=== PATIENT | female | born 1990 | race Caucasian/White ===

== ENCOUNTER → 2022-03-12 09:53 | Outpatient (CLI) | payer MEDICARE, MEDICAID, SELFPAY ==
[2022-03-12 11:52] LABS: HCG Quantitative /Beta subunit < 2.4 mIU/mL
[2022-03-12 12:31] LABS: Appearance Urine UA SL CLOUDY; Bilirubin Urine UA NEGATIVE (NEGATIVE); Color Urine UA YELLOW; Glucose Urine UA NEGATIVE (Negative); Ketones Urine UA NEGATIVE (NEGATIVE); Leukocyte Esterase Urine UA 2+ (NEGATIVE); Nitrite Urine UA NEGATIVE (Negative); Occult Blood Urine UA NEGATIVE (Negative); Protein Urine UA NEGATIVE (Negative); Urobilinogen Urine UA 0.2 E.U./dL (0.2)
[2022-03-12 12:54] LABS: Bacteria Urine Few (2-10); RBC Urine None Seen (0-5/HPF); Squamous Epithelial Cell Urine 0-1 /HPF (0-5/HPF); WBC Urine 1-5/HPF (0-5/HPF)
== END ==
PROVIDERS: PCP Family Medicine; Referring Provider Family Medicine; Visit Provider Family Medicine
DX: Z34.92 Encounter for supervision of normal pregnancy, unspecified, second trimester; Z3A.15 15 weeks gestation of pregnancy
CPT/HCPCS: 36415; 81001; 84702; 87086

== ENCOUNTER → 2023-04-19 12:24 | Outpatient (CLI) | payer MEDICARE, MEDICAID, SELFPAY ==
--- NOTE | 2023-04-19 12:28 | DI.RAD.S_ITS ---
PROCEDURE: XR LUMBAR SPINE 2-3V INDICATIONS: Back pain TECHNIQUE: 3 views of the lumbar spine were acquired. COMPARISON: None. FINDINGS: Bones: 5 [id number] vertebrae are present. There is transitional anatomy with lumbarization of S1 and a rudimentary disc at S1-S2. There is a mild rightward curvature of the thoracolumbar spine. Mild facet joint arthropathy demonstrated in the lower lumbar spine. No vertebral body compression fractures. No suspicious bony lesions. Soft tissues: Overlying bowel gas pattern is normal. No suspicious soft tissue calcifications. IMPRESSION: 1. 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 2. Mild facet arthropathy in the lower lumbar spine and at the lumbosacral junction. Dictated by: Eloy Estes M.D. on 04/20/2023 at 3:06 Approved by: Eloy Estes M.D. on 04/20/2023 at 3:09
== END ==
PROVIDERS: Referring Provider Physician Assistant; Visit Provider Physician Assistant
DX: M47.816 Spondylosis without myelopathy or radiculopathy, lumbar region (principal); M47.817 Spondylosis without myelopathy or radiculopathy, lumbosacral region; M54.9 Dorsalgia, unspecified
CPT/HCPCS: 72100

== ENCOUNTER 2023-07-12 11:30 | Outpatient (RCR) | payer MEDICARE, MEDICAID, SELFPAY ==
--- NOTE | 2023-06-01 09:57 | PT.OIE ---
Current Diagnoses Dorsalgia, unspecified (06/01/23) Past Medical History (Last Reviewed 04/19/23 @ 12:17 by Jeanna Bowens PA-C) Agenesis, corpus callosum Asthma Elbow fracture, left MRSA (methicillin resistant staph aureus) culture positive Past Surgical History (Last Reviewed 04/19/23 @ 12:17 by Jeanna Bowens PA-C) History of tonsillectomy Previous section Visit Care Team Role Provider Type Jeanna Bowens PA-C Attending Provider Advanced Distribution Transformer Assembler Family Provider Primary Care Provider Referring Provider Specialty: Emergency Medicine Address: [address] [place] [address], [facility] Email: [email or web address] Physical Therapy Initial Evaluation PT-OP-A Visit Information Start: 06/01/23 09:44 Freq: Status: Active Protocol: Document 06/01/23 09:45 ED (Rec: 06/01/23 09:57 ED [id number]) Out-Patient Physical Therapy Visit Information Visit Information Visit Type Initial Evaluation Visit Start Time 09:00 Visit Stop Time 09:45 Total Visit Minutes 45 PT-OP-B Current Condition Start: 06/01/23 09:44 Freq: Status: Active Protocol: Document 06/01/23 09:45 ED (Rec: 06/01/23 09:57 ED [id number]) Current Condition History of Current Condition Onset Date May Current Complaints LBP History of Current Condition Pt states that she fell out of a [employer]ul about 1 year ago and has had on and off back pain since then. Pt notes that she joined [employer] recently and hired a personal fitness manager but that production trainer wanted her to get her low back pain cleared up before they worked together. Pt notes that her pain is in her low back and the only things that she can think of that are painful for her are prolonged sitting and prolonged standing. Pt denies having any positional discomfort such as flexion or extension. Pt has no prior exercise history and states that she can get anxiety easily. PT-OP-C Subjective Start: 06/01/23 09:44 Freq: Status: Active Protocol: Document 06/01/23 09:45 ED (Rec: 06/01/23 09:57 ED [id number]) Patient Questionnaires Oswestry Low Back Index Oswestry Score 24 Oswestry Impairment 20 to 39% Impaired (Score 20- 39) PT-OP-K Range of Motion Start: 06/01/23 09:44 Freq: Status: Active Protocol: Document 06/01/23 09:45 ED (Rec: 06/01/23 09:57 ED [id number]) Lumbar Spine Range of Motion Lumbar Spine Percentage Testing Position Standing Flexion 75 Extension 50 ROM Limitations Pain PT-OP-L Special Tests Start: 06/01/23 09:44 Freq: Status: Active Protocol: Document 06/01/23 09:45 ED (Rec: 06/01/23 09:57 ED [id number]) Special Tests Lumbar Spine Special Tests Prone Press Up Test Results - Straight Leg Raise Test Results - PT-OP-Q Treatments Start: 06/01/23 09:44 Freq: Status: Active Protocol: Document 06/01/23 09:45 ED (Rec: 06/01/23 09:57 ED [id number]) Therapeutic Exercises Supine Exercises bridge Comments patient hesitant to perform bridge Prone Exercises rashard pose Reps/Minutes x30 second hold press up Reps/Minutes x10 OR 30 second hold Therapeutic Activity Therapeutic Activity squat Name STS PT-OP-T Assessment and Plan Start: 06/01/23 09:44 Freq: Status: Active Protocol: Document 06/01/23 09:45 ED (Rec: 06/01/23 09:57 ED [id number]) Physical Therapy Assessment Rehab Potential Rehabilitation Potential Fair Evaluation Complexity Number of Personal Factors/Comorbidities 1-2 Number of Body Systems Impaired 1-2 Clinical Presentation at Evaluation Stable Impairments Impairments Activity Tolerance,Functional Activities,Functional Mobility ,Pain,ROM Goals Three Impairment pain Short Term Goal (STG) Pt will report 15% improvement in low back pain intensity/ frequency. STG Duration 3 weeks. Wound Care Physician Goal (LTG) Pt will report 50% improvement in low back pain intensity/ frequency. LTG Duration 6-8 weeks Two Impairment painful movements Short Term Goal (STG) pt will be able to perform 10 bridges c/o low back pain. STG Duration 3 weeks Wound Care Physician Goal (LTG) Pt will be able to drupal php developer 10# object from the ground c/o low back pain. One Impairment HEP Short Term Goal (STG) Pt will report performing HEP 3 days/week or more. STG Duration 3 weeks Fpc Goal (LTG) Pt will report performing HEP 3 days/week or more. LTG Duration 6 weeks Assessment Summary Assessment Pt reported to PT c/ complaints of chronic low back pain that started about 1 year ago when she fell out of a truck. Pain seemed to be reproduced c/ muscular exertion such as hip bridges and bending over. Pt did not have a directional preference. She has no exercise history and stated that she can have severe anxiety so PT will progress/regress patient accordingly to match her tolerance for activity and strenuous exercises. Pt provided initial HEP of: hip bridges, rashard pose, prone press ups, sit<>stands, and aerobic activity on a TM or elliptical. Physical Therapy Plan Frequency and Duration Frequency of Treatment 2x/Week Duration of treatment (weeks) 10 Plan of Care Start Date 06/01/23 Plan of Care End Date 08/30/23 Therapeutic Interventions Therapeutic Interventions Home Exercise Program,Joint Mobilizations,Manual Therapy, Neuromuscular Re-education, Patient/Caregiver Education, Self-Care/Home Management,Soft Tissue Mobilization,Taping, Therapeutic Activities, Therapeutic Exercises Modalities Biofeedback,Cold Pack/Ice Massage,Electric Stimulation, Hot Packs,Ultrasound Next Visit Focus/Plan Next Note Type Treatment Note Next Visit Plan hip bridges, rashard pose, prone press ups, sit<>stands, and aerobic activity on a TM or elliptical.
--- NOTE | 2023-06-01 09:57 | PT.OPPOC ---
Physical, Occupational & Speech Therapy At [facility] Current Diagnoses Dorsalgia, unspecified (06/01/23) Visit Care Team Role Provider Type Jeanna Bowens PA-C Attending Provider Advanced Tar Heat Exchanger Cleaner Family Provider Primary Care Provider Referring Provider Specialty: Emergency Medicine Address: [address] [place] [address], [facility] Email: [email or web address] Plan Of Care PT-OP-T Assessment and Plan Start: 06/01/23 09:44 Freq: Status: Active Protocol: Document 06/01/23 09:45 ED (Rec: 06/01/23 09:57 ED [id number]) Physical Therapy Assessment Rehab Potential Rehabilitation Potential Fair Evaluation Complexity Number of Personal Factors/Comorbidities 1-2 Number of Body Systems Impaired 1-2 Clinical Presentation at Evaluation Stable Impairments Impairments Activity Tolerance,Functional Activities,Functional Mobility ,Pain,ROM Goals Three Impairment pain Short Term Goal (STG) Pt will report 15% improvement in low back pain intensity/ frequency. STG Duration 3 weeks. Shelter Goal (LTG) Pt will report 50% improvement in low back pain intensity/ frequency. LTG Duration 6-8 weeks Two Impairment painful movements Short Term Goal (STG) pt will be able to perform 10 bridges c/o low back pain. STG Duration 3 weeks Orchard Manager Goal (LTG) Pt will be able to pick out hand 10# object from the ground c/o low back pain. One Impairment HEP Short Term Goal (STG) Pt will report performing HEP 3 days/week or more. STG Duration 3 weeks Orchard Manager Goal (LTG) Pt will report performing HEP 3 days/week or more. LTG Duration 6 weeks Assessment Summary Assessment Pt reported to PT c/ complaints of chronic low back pain that started about 1 year ago when she fell out of a truck. Pain seemed to be reproduced c/ muscular exertion such as hip bridges and bending over. Pt did not have a directional preference. She has no exercise history and stated that she can have severe anxiety so PT will progress/regress patient accordingly to match her tolerance for activity and strenuous exercises. Pt provided initial HEP of: hip bridges, rashard pose, prone press ups, sit<>stands, and aerobic activity on a TM or elliptical. Physical Therapy Plan Frequency and Duration Frequency of Treatment 2x/Week Duration of treatment (weeks) 10 Plan of Care Start Date 06/01/23 Plan of Care End Date 08/30/23 Therapeutic Interventions Therapeutic Interventions Home Exercise Program,Joint Mobilizations,Manual Therapy, Neuromuscular Re-education, Patient/Caregiver Education, Self-Care/Home Management,Soft Tissue Mobilization,Taping, Therapeutic Activities, Therapeutic Exercises Modalities Biofeedback,Cold Pack/Ice Massage,Electric Stimulation, Hot Packs,Ultrasound Next Visit Focus/Plan Next Note Type Treatment Note Next Visit Plan hip bridges, rashard pose, prone press ups, sit<>stands, and aerobic activity on a TM or elliptical. Plan of Care Dates Plan of Care Start Date 06/01/23 Plan of Care End Date 08/30/23 Electronically Signed by: Delbert Poe, PT 06/01/23 0957 If you are in agreement with this Plan of Care, please return a signed and dated copy. I have reviewed this Plan of Care and certify that the skilled therapy services above are required to meet the patient?s needs. Physician Signature Date Printed Name and Credentials Clinical Instructor Signature Printed Name and Credentials
--- NOTE | 2023-06-07 09:03 | PT.OTN ---
Current Diagnoses Dorsalgia, unspecified (06/07/23) Physical Therapy Treatment Note PT-OP-A Visit Information Start: 06/01/23 09:44 Freq: Status: Active Protocol: Document 06/07/23 09:00 ED (Rec: 06/07/23 09:03 ED [id number]) Out-Patient Physical Therapy Visit Information Visit Information Visit Type Treatment Note Visit Note 11/26 Visit Start Time 08:15 Visit Stop Time 09:00 Total Visit Minutes 45 Visit Number 2 PT-OP-B Current Condition Start: 06/01/23 09:44 Freq: Status: Active Protocol: Document 06/01/23 09:45 ED (Rec: 06/01/23 09:57 ED [id number]) Current Condition History of Current Condition Onset Date May Current Complaints LBP History of Current Condition Pt states that she fell out of a [employer] about 1 year ago and has had on and off back pain since then. Pt notes that she joined [employer] recently and hired a celebrity chef entrepreneur media personality but that puppy trainer wanted her to get her low back pain cleared up before they worked together. Pt notes that her pain is in her low back and the only things that she can think of that are painful for her are prolonged sitting and prolonged standing. Pt denies having any positional discomfort such as flexion or extension. Pt has no prior exercise history and states that she can get anxiety easily. PT-OP-C Subjective Start: 06/01/23 09:44 Freq: Status: Active Protocol: Document 06/07/23 09:00 ED (Rec: 06/07/23 09:03 ED [id number]) OP-PT Subjective Patient Comments Patient Comments Pt states she did not perform her HEP. States she had a bad migraine over the weekend. PT-OP-K Range of Motion Start: 06/01/23 09:44 Freq: Status: Active Protocol: Document 06/01/23 09:45 ED (Rec: 06/01/23 09:57 ED [id number]) Lumbar Spine Range of Motion Lumbar Spine Percentage Testing Position Standing Flexion 75 Extension 50 ROM Limitations Pain PT-OP-L Special Tests Start: 06/01/23 09:44 Freq: Status: Active Protocol: Document 06/01/23 09:45 ED (Rec: 06/01/23 09:57 ED [id number]) Special Tests Lumbar Spine Special Tests Prone Press Up Test Results - Straight Leg Raise Test Results - PT-OP-Q Treatments Start: 06/01/23 09:44 Freq: Status: Active Protocol: Document 06/07/23 09:00 ED (Rec: 06/07/23 09:03 ED [id number]) Cardio Equipment Elliptical Duration (Minutes) 10 Resistance 4 Other goal to keep RPM >40 Treadmill Duration (Minutes) 10 Speed 2.0 Incline 4.0 Therapeutic Exercises Supine Exercises bridge Resistance 10# Comments patient hesitant to perform bridge Prone Exercises rashard pose Reps/Minutes x30 second hold press up Reps/Minutes x10 OR 30 second hold Therapeutic Activity Therapeutic Activity squat Name STS Reps/Minutes 4x15 Comments 10# PT-OP-T Assessment and Plan Start: 06/01/23 09:44 Freq: Status: Active Protocol: Document 06/07/23 09:00 ED (Rec: 06/07/23 09:03 ED [id number]) Physical Therapy Assessment Goals Three Impairment pain Short Term Goal (STG) Pt will report 15% improvement in low back pain intensity/ frequency. STG Duration 3 weeks. Mcc Goal (LTG) Pt will report 50% improvement in low back pain intensity/ frequency. LTG Duration 6-8 weeks Two Impairment painful movements Short Term Goal (STG) pt will be able to perform 10 bridges c/o low back pain. STG Duration 3 weeks Telegraph Service Clerk Goal (LTG) Pt will be able to clam picker 10# object from the ground c/o low back pain. One Impairment HEP Short Term Goal (STG) Pt will report performing HEP 3 days/week or more. STG Duration 3 weeks Mcc Goal (LTG) Pt will report performing HEP 3 days/week or more. LTG Duration 6 weeks Assessment Summary Assessment Pt tolerated treatment well c/ no adverse events. Pt has very limited exposure to structured exercise so PT is slowly building up exercise selections and intensities. Pt worked on LE strengthening and core bracing today. Started and ended session c/ cardio equipment so patient can familiarize herself with equipment and become independent when she goes to the gym. Physical Therapy Plan Frequency and Duration Frequency of Treatment 2x/Week Duration of treatment (weeks) 10 Plan of Care Start Date 06/01/23 Plan of Care End Date 08/30/23 Next Visit Focus/Plan Next Note Type Treatment Note Next Visit Plan hip bridges, rashard pose, prone press ups, sit<>stands, and aerobic activity on a TM or elliptical.
--- NOTE | 2023-06-14 08:59 | PT.OTN ---
Current Diagnoses Dorsalgia, unspecified (06/14/23) Physical Therapy Treatment Note PT-OP-A Visit Information Start: 06/01/23 09:44 Freq: Status: Active Protocol: Document 06/14/23 08:57 ED (Rec: 06/14/23 08:59 ED [id number]) Out-Patient Physical Therapy Visit Information Visit Information Visit Type Treatment Note Visit Note 12/24 Visit Start Time 08:15 Visit Stop Time 08:55 Total Visit Minutes 40 Visit Number 3 PT-OP-B Current Condition Start: 06/01/23 09:44 Freq: Status: Active Protocol: Document 06/01/23 09:45 ED (Rec: 06/01/23 09:57 ED [id number]) Current Condition History of Current Condition Onset Date May Current Complaints LBP History of Current Condition Pt states that she fell out of a [employer] about 1 year ago and has had on and off back pain since then. Pt notes that she joined [employer] recently and hired a senior technical trainer but that medical management trainer wanted her to get her low back pain cleared up before they worked together. Pt notes that her pain is in her low back and the only things that she can think of that are painful for her are prolonged sitting and prolonged standing. Pt denies having any positional discomfort such as flexion or extension. Pt has no prior exercise history and states that she can get anxiety easily. PT-OP-C Subjective Start: 06/01/23 09:44 Freq: Status: Active Protocol: Document 06/14/23 08:57 ED (Rec: 06/14/23 08:59 ED [id number]) OP-PT Subjective Patient Comments Patient Comments Pt apologizes for missing last session. She notes her driver lifter of sanitation truck was unable to get her to the appointment on time. States she was a little sore following last session. PT-OP-K Range of Motion Start: 06/01/23 09:44 Freq: Status: Active Protocol: Document 06/01/23 09:45 ED (Rec: 06/01/23 09:57 ED [id number]) Lumbar Spine Range of Motion Lumbar Spine Percentage Testing Position Standing Flexion 75 Extension 50 ROM Limitations Pain PT-OP-L Special Tests Start: 06/01/23 09:44 Freq: Status: Active Protocol: Document 06/01/23 09:45 ED (Rec: 08/16/23 09:57 ED [id number]) Special Tests Lumbar Spine Special Tests Prone Press Up Test Results - Straight Leg Raise Test Results - PT-OP-Q Treatments Start: 06/01/23 09:44 Freq: Status: Active Protocol: Document 06/14/23 08:57 ED (Rec: 06/14/23 08:59 ED [id number]) Cardio Equipment Elliptical Duration (Minutes) 10 Resistance 4 Other goal to keep RPM >40 Treadmill Duration (Minutes) 10 Speed 2.0 Incline 4.0 Therapeutic Exercises Supine Exercises bridge Resistance 10# Prone Exercises rashard pose Reps/Minutes x30 second hold press up Reps/Minutes x10 OR 30 second hold Therapeutic Activity Therapeutic Activity squat Name STS Reps/Minutes 4x15 Comments 10# PT-OP-T Assessment and Plan Start: 06/01/23 09:44 Freq: Status: Active Protocol: Document 06/14/23 08:57 ED (Rec: 06/14/23 08:59 ED [id number]) Physical Therapy Assessment Goals Three Impairment pain Short Term Goal (STG) Pt will report 15% improvement in low back pain intensity/ frequency. STG Duration 3 weeks. Denture Finisher Goal (LTG) Pt will report 50% improvement in low back pain intensity/ frequency. LTG Duration 6-8 weeks Two Impairment painful movements Short Term Goal (STG) pt will be able to perform 10 bridges c/o low back pain. STG Duration 3 weeks Denture Finisher Goal (LTG) Pt will be able to parts picker 10# object from the ground c/o low back pain. One Impairment HEP Short Term Goal (STG) Pt will report performing HEP 3 days/week or more. STG Duration 3 weeks Penitentiary Goal (LTG) Pt will report performing HEP 3 days/week or more. LTG Duration 6 weeks Assessment Summary Assessment PT had patient perform exercises similar to last session to mitigate muscle soreness. No pain noted during exercises today. Physical Therapy Plan Frequency and Duration Frequency of Treatment 2x/Week Duration of treatment (weeks) 10 Plan of Care Start Date 06/01/23 Plan of Care End Date 08/30/23 Next Visit Focus/Plan Next Note Type Treatment Note Next Visit Plan hip bridges, rashard pose, prone press ups, sit<>stands, and aerobic activity on a TM or elliptical.
--- NOTE | 2023-06-17 09:01 | PT.OTN ---
Current Diagnoses Dorsalgia, unspecified (06/17/23) Physical Therapy Treatment Note PT-OP-A Visit Information Start: 06/01/23 09:44 Freq: Status: Active Protocol: Document 06/17/23 08:58 ED (Rec: 06/17/23 09:01 ED [id number]) Out-Patient Physical Therapy Visit Information Visit Information Visit Type Treatment Note Visit Note 01/24 Visit Start Time 08:25 Visit Stop Time 08:55 Total Visit Minutes 30 Visit Number 4 PT-OP-B Current Condition Start: 06/01/23 09:44 Freq: Status: Active Protocol: Document 06/01/23 09:45 ED (Rec: 06/01/23 09:57 ED [id number]) Current Condition History of Current Condition Onset Date May Current Complaints LBP History of Current Condition Pt states that she fell out of a [employer]Ha[employer] about 1 year ago and has had on and off back pain since then. Pt notes that she joined [employer] recently and hired a program director/air personality but that seeing eye dog trainer wanted her to get her low back pain cleared up before they worked together. Pt notes that her pain is in her low back and the only things that she can think of that are painful for her are prolonged sitting and prolonged standing. Pt denies having any positional discomfort such as flexion or extension. Pt has no prior exercise history and states that she can get anxiety easily. PT-OP-C Subjective Start: 06/01/23 09:44 Freq: Status: Active Protocol: Document 06/17/23 08:58 ED (Rec: 06/17/23 09:01 ED [id number]) OP-PT Subjective Patient Comments Patient Comments Pt states she has some low back pain yesterday. It can sometimes spread to her R hip but not always. PT-OP-K Range of Motion Start: 06/01/23 09:44 Freq: Status: Active Protocol: Document 06/01/23 09:45 ED (Rec: 06/01/23 09:57 ED [id number]) Lumbar Spine Range of Motion Lumbar Spine Percentage Testing Position Standing Flexion 75 Extension 50 ROM Limitations Pain PT-OP-L Special Tests Start: 06/01/23 09:44 Freq: Status: Active Protocol: Document 06/01/23 09:45 ED (Rec: 06/01/23 09:57 ED [id number]) Special Tests Lumbar Spine Special Tests Prone Press Up Test Results - Straight Leg Raise Test Results - PT-OP-Q Treatments Start: 06/01/23 09:44 Freq: Status: Active Protocol: Document 06/17/23 08:58 ED (Rec: 06/17/23 09:01 ED [id number]) Cardio Equipment Treadmill Duration (Minutes) 10 Speed 2.0 Incline 4.0 Therapeutic Exercises Supine Exercises bridge Resistance 10# Reps/Minutes 3x10 Prone Exercises rashard pose Reps/Minutes x30 second hold press up Reps/Minutes x10 OR 30 second hold Standing Exercises lateral throw Standing Exercise Name lateral med ball throw Side bilateral Resistance 5# Equipment Used ball Reps/Minutes 2x10/side Therapeutic Activity Therapeutic Activity hinge Name RDL Reps/Minutes [id number] Comments 10-20# PT-OP-T Assessment and Plan Start: 06/01/23 09:44 Freq: Status: Active Protocol: Document 06/17/23 08:58 ED (Rec: 06/17/23 09:01 ED [id number]) Physical Therapy Assessment Goals Three Impairment pain Short Term Goal (STG) Pt will report 15% improvement in low back pain intensity/ frequency. STG Duration 3 weeks. Latent Fingerprint Examiner Goal (LTG) Pt will report 50% improvement in low back pain intensity/ frequency. LTG Duration 6-8 weeks Two Impairment painful movements Short Term Goal (STG) pt will be able to perform 10 bridges c/o low back pain. STG Duration 3 weeks Halfway Goal (LTG) Pt will be able to pickle processor 10# object from the ground c/o low back pain. One Impairment HEP Short Term Goal (STG) Pt will report performing HEP 3 days/week or more. STG Duration 3 weeks Halfway Goal (LTG) Pt will report performing HEP 3 days/week or more. LTG Duration 6 weeks Assessment Summary Assessment PT and patient spoke regarding going to [employer] and working with her program director/air personality. Pt states that she has never had back pain before and wants it to go away. PT discussed that pain, especially low back pain, is often not a serious injury and has the tendency to come and go. Pt somewhat responsive to input but still hesisitant to return to gym. Physical Therapy Plan Frequency and Duration Frequency of Treatment 2x/Week Duration of treatment (weeks) 10 Plan of Care Start Date 06/01/23 Plan of Care End Date 08/30/23 Next Visit Focus/Plan Next Note Type Treatment Note Next Visit Plan hip bridges, rashard pose, prone press ups, sit<>stands, and aerobic activity on a TM or elliptical.
--- NOTE | 2023-06-23 12:02 | PT.OTN ---
Current Diagnoses Dorsalgia, unspecified (06/23/23) Physical Therapy Treatment Note PT-OP-A Visit Information Start: 06/01/23 09:44 Freq: Status: Active Protocol: Document 06/23/23 11:58 ED (Rec: 06/23/23 12:02 ED [id number]) Out-Patient Physical Therapy Visit Information Visit Information Visit Type Treatment Note Visit Note 02/23 Visit Start Time 11:30 Visit Stop Time 12:00 Total Visit Minutes 30 Visit Number 5 PT-OP-B Current Condition Start: 06/01/23 09:44 Freq: Status: Active Protocol: Document 06/01/23 09:45 ED (Rec: 06/01/23 09:57 ED [id number]) Current Condition History of Current Condition Onset Date May Current Complaints LBP History of Current Condition Pt states that she fell out of a [employer] about 1 year ago and has had on and off back pain since then. Pt notes that she joined [employer] recently and hired a personal caregiver but that corporate sales trainer wanted her to get her low back pain cleared up before they worked together. Pt notes that her pain is in her low back and the only things that she can think of that are painful for her are prolonged sitting and prolonged standing. Pt denies having any positional discomfort such as flexion or extension. Pt has no prior exercise history and states that she can get anxiety easily. PT-OP-C Subjective Start: 06/01/23 09:44 Freq: Status: Active Protocol: Document 06/23/23 11:58 ED (Rec: 06/23/23 12:02 ED [id number]) OP-PT Subjective Patient Comments Patient Comments Pt denies having any increase in back pain following last PT session. States that she is hopeful to get started c/ a dietitian soon and start going to the gym. PT-OP-K Range of Motion Start: 06/01/23 09:44 Freq: Status: Active Protocol: Document 06/01/23 09:45 ED (Rec: 06/01/23 09:57 ED [id number]) Lumbar Spine Range of Motion Lumbar Spine Percentage Testing Position Standing Flexion 75 Extension 50 ROM Limitations Pain PT-OP-L Special Tests Start: 06/01/23 09:44 Freq: Status: Active Protocol: Document 06/01/23 09:45 ED (Rec: 06/01/23 09:57 ED [id number]) Special Tests Lumbar Spine Special Tests Prone Press Up Test Results - Straight Leg Raise Test Results - PT-OP-Q Treatments Start: 06/01/23 09:44 Freq: Status: Active Protocol: Document 06/23/23 11:58 ED (Rec: 06/23/23 12:02 ED [id number]) Cardio Equipment Treadmill Duration (Minutes) 10 Speed 2.0 Incline 4.0 Therapeutic Exercises Supine Exercises bridge Resistance 10# Reps/Minutes 3x10 Comments normal bridge, single leg bridge, weighted bridge Prone Exercises rashard pose Reps/Minutes x30 second hold press up Reps/Minutes x10 OR 30 second hold Therapeutic Activity Therapeutic Activity hinge Name RDL Reps/Minutes [id number] Comments 20# squat Name STS Reps/Minutes 3x10 Comments 10# PT-OP-T Assessment and Plan Start: 06/01/23 09:44 Freq: Status: Active Protocol: Document 06/23/23 11:58 ED (Rec: 06/23/23 12:02 ED [id number]) Physical Therapy Assessment Goals Three Impairment pain Short Term Goal (STG) Pt will report 15% improvement in low back pain intensity/ frequency. STG Duration 3 weeks. Correction Goal (LTG) Pt will report 50% improvement in low back pain intensity/ frequency. LTG Duration 6-8 weeks Two Impairment painful movements Short Term Goal (STG) pt will be able to perform 10 bridges c/o low back pain. STG Duration 3 weeks Correction Goal (LTG) Pt will be able to pickup driver 10# object from the ground c/o low back pain. One Impairment HEP Short Term Goal (STG) Pt will report performing HEP 3 days/week or more. STG Duration 3 weeks Correction Goal (LTG) Pt will report performing HEP 3 days/week or more. LTG Duration 6 weeks Assessment Summary Assessment Pt tolerating treatment and current exercise selection well which has included lumbopelvic mobility drills and compound movements that focus on LE strength and core bracing. Physical Therapy Plan Frequency and Duration Frequency of Treatment 2x/Week Duration of treatment (weeks) 10 Plan of Care Start Date 06/01/23 Plan of Care End Date 08/30/23 Next Visit Focus/Plan Next Note Type Treatment Note Next Visit Plan hip bridges, rashard pose, prone press ups, sit<>stands, core rotation throws and aerobic activity on a TM or elliptical.
--- NOTE | 2023-06-28 12:16 | PT.OTN ---
Current Diagnoses Dorsalgia, unspecified (06/28/23) Physical Therapy Treatment Note PT-OP-A Visit Information Start: 06/01/23 09:44 Freq: Status: Active Protocol: Document 06/28/23 12:12 ED (Rec: 06/28/23 12:16 ED [id number]) Out-Patient Physical Therapy Visit Information Visit Information Visit Type Treatment Note Visit Note 03/26 Visit Start Time 11:30 Visit Stop Time 12:10 Total Visit Minutes 40 Visit Number 6 PT-OP-B Current Condition Start: 06/01/23 09:44 Freq: Status: Active Protocol: Document 06/01/23 09:45 ED (Rec: 06/01/23 09:57 ED [id number]) Current Condition History of Current Condition Onset Date May Current Complaints LBP History of Current Condition Pt states that she fell out of a [employer] about 1 year ago and has had on and off back pain since then. Pt notes that she joined [employer] recently and hired a personal injury legal assistant but that net trainer wanted her to get her low back pain cleared up before they worked together. Pt notes that her pain is in her low back and the only things that she can think of that are painful for her are prolonged sitting and prolonged standing. Pt denies having any positional discomfort such as flexion or extension. Pt has no prior exercise history and states that she can get anxiety easily. PT-OP-C Subjective Start: 06/01/23 09:44 Freq: Status: Active Protocol: Document 06/28/23 12:12 ED (Rec: 06/28/23 12:16 ED [id number]) OP-PT Subjective Patient Comments Patient Comments Pt states that she is going to start going to the gym in early July and is hopeful to have a fabrication welder at that point in time as well. States her back is better and typically just hurts if she has been standing too long or in certain positions. PT-OP-K Range of Motion Start: 06/01/23 09:44 Freq: Status: Active Protocol: Document 06/01/23 09:45 ED (Rec: 06/01/23 09:57 ED [id number]) Lumbar Spine Range of Motion Lumbar Spine Percentage Testing Position Standing Flexion 75 Extension 50 ROM Limitations Pain PT-OP-L Special Tests Start: 06/01/23 09:44 Freq: Status: Active Protocol: Document 06/01/23 09:45 ED (Rec: 06/01/23 09:57 ED [id number]) Special Tests Lumbar Spine Special Tests Prone Press Up Test Results - Straight Leg Raise Test Results - PT-OP-Q Treatments Start: 06/01/23 09:44 Freq: Status: Active Protocol: Document 06/28/23 12:12 ED (Rec: 06/28/23 12:16 ED [id number]) Cardio Equipment Treadmill Duration (Minutes) 10 Speed 2.0 Incline 4.0 Therapeutic Exercises Supine Exercises bridge Resistance 10# Reps/Minutes 3x10 Comments normal bridge, single leg bridge, weighted bridge Prone Exercises rashard pose Reps/Minutes x30 second hold press up Reps/Minutes x10 OR 30 second hold Standing Exercises lateral throw Standing Exercise Name lateral med ball throw Side bilateral Resistance 5# Equipment Used ball Reps/Minutes 2x10/side Therapeutic Activity Therapeutic Activity hinge Name RDL Reps/Minutes [id number] Comments 20# PT-OP-T Assessment and Plan Start: 06/01/23 09:44 Freq: Status: Active Protocol: Document 06/28/23 12:12 ED (Rec: 06/28/23 12:16 ED [id number]) Physical Therapy Assessment Goals Three Impairment pain Short Term Goal (STG) Pt will report 15% improvement in low back pain intensity/ frequency. STG Duration 3 weeks. Ed Tech Goal (LTG) Pt will report 50% improvement in low back pain intensity/ frequency. LTG Duration 6-8 weeks Two Impairment painful movements Short Term Goal (STG) pt will be able to perform 10 bridges c/o low back pain. STG Duration 3 weeks Ed Tech Goal (LTG) Pt will be able to cone picker 10# object from the ground c/o low back pain. One Impairment HEP Short Term Goal (STG) Pt will report performing HEP 3 days/week or more. STG Duration 3 weeks Ed Tech Goal (LTG) Pt will report performing HEP 3 days/week or more. LTG Duration 6 weeks Assessment Summary Assessment Pt happy b/c she was able to crack her back when performing lumbar mobility drills today. PT asked patient how therapy has been going for her and she stated that she hasn't noticed any discomfort when performing the exercises nor has she been very sore after exercising. PT attempting to educated patient that low back pain is a normal experience and that she should be able to work with her personal injury legal assistant at the gym. Physical Therapy Plan Frequency and Duration Frequency of Treatment 2x/Week Duration of treatment (weeks) 10 Plan of Care Start Date 06/01/23 Plan of Care End Date 08/30/23 Next Visit Focus/Plan Next Note Type Treatment Note Next Visit Plan hip bridges, rashard pose, prone press ups, sit<>stands, core rotation throws and aerobic activity on a TM or elliptical.
--- NOTE | 2023-07-01 12:16 | PT.OTN ---
Current Diagnoses Dorsalgia, unspecified (07/01/23) Physical Therapy Treatment Note PT-OP-A Visit Information Start: 06/01/23 09:44 Freq: Status: Active Protocol: Document 07/01/23 12:14 ED (Rec: 07/01/23 12:16 ED [id number]) Out-Patient Physical Therapy Visit Information Visit Information Visit Type Treatment Note Visit Note 04/25 Visit Start Time 11:30 Visit Stop Time 12:15 Total Visit Minutes 45 Visit Number 7 PT-OP-B Current Condition Start: 06/01/23 09:44 Freq: Status: Active Protocol: Document 06/01/23 09:45 ED (Rec: 06/01/23 09:57 ED [id number]) Current Condition History of Current Condition Onset Date May Current Complaints LBP History of Current Condition Pt states that she fell out of a [employer] about 1 year ago and has had on and off back pain since then. Pt notes that she joined [employer] recently and hired a representative personal service but that head athletic trainer/strength coach wanted her to get her low back pain cleared up before they worked together. Pt notes that her pain is in her low back and the only things that she can think of that are painful for her are prolonged sitting and prolonged standing. Pt denies having any positional discomfort such as flexion or extension. Pt has no prior exercise history and states that she can get anxiety easily. PT-OP-C Subjective Start: 06/01/23 09:44 Freq: Status: Active Protocol: Document 07/01/23 12:14 ED (Rec: 07/01/23 12:16 ED [id number]) OP-PT Subjective Patient Comments Patient Comments Pt states that her back is feeling better. She feels like she is able to move it more freely and with less pain. PT-OP-K Range of Motion Start: 06/01/23 09:44 Freq: Status: Active Protocol: Document 06/01/23 09:45 ED (Rec: 06/01/23 09:57 ED [id number]) Lumbar Spine Range of Motion Lumbar Spine Percentage Testing Position Standing Flexion 75 Extension 50 ROM Limitations Pain PT-OP-L Special Tests Start: 06/01/23 09:44 Freq: Status: Active Protocol: Document 06/01/23 09:45 ED (Rec: 06/01/23 09:57 ED [id number]) Special Tests Lumbar Spine Special Tests Prone Press Up Test Results - Straight Leg Raise Test Results - PT-OP-Q Treatments Start: 06/01/23 09:44 Freq: Status: Active Protocol: Document 07/01/23 12:14 ED (Rec: 07/01/23 12:16 ED [id number]) Cardio Equipment Elliptical Duration (Minutes) 10 Resistance 4 Other goal to keep RPM >40 Treadmill Duration (Minutes) 10 Speed 2.0 Incline 4.0 Therapeutic Exercises Prone Exercises scoprion Reps/Minutes x5 each way rashard pose Reps/Minutes x30 second hold press up Reps/Minutes x10 OR 30 second hold Standing Exercises lateral throw Standing Exercise Name lateral med ball throw Side bilateral Resistance 5# Equipment Used ball Reps/Minutes 2x10/side Therapeutic Activity Therapeutic Activity hinge Name RDL Reps/Minutes [id number] Comments 20# squat Name STS Reps/Minutes 3x10 Comments 10# PT-OP-T Assessment and Plan Start: 06/01/23 09:44 Freq: Status: Active Protocol: Document 07/01/23 12:14 ED (Rec: 07/01/23 12:16 ED [id number]) Physical Therapy Assessment Goals Three Impairment pain Short Term Goal (STG) Pt will report 15% improvement in low back pain intensity/ frequency. STG Duration 3 weeks. Senior Living Goal (LTG) Pt will report 50% improvement in low back pain intensity/ frequency. LTG Duration 6-8 weeks Two Impairment painful movements Short Term Goal (STG) pt will be able to perform 10 bridges c/o low back pain. STG Duration 3 weeks Senior Living Goal (LTG) Pt will be able to last picker 10# object from the ground c/o low back pain. One Impairment HEP Short Term Goal (STG) Pt will report performing HEP 3 days/week or more. STG Duration 3 weeks Senior Living Goal (LTG) Pt will report performing HEP 3 days/week or more. LTG Duration 6 weeks Assessment Summary Assessment Pt happy b/c she was able to crack her back when performing lumbar mobility drills today. PT asked patient how therapy has been going for her and she stated that she hasn't noticed any discomfort when performing the exercises nor has she been very sore after exercising. PT attempting to educated patient that low back pain is a normal experience and that she should be able to work with her representative personal service at the gym. Physical Therapy Plan Next Visit Focus/Plan Next Note Type Treatment Note Next Visit Plan hip bridges, rashard pose, prone press ups, sit<>stands, core rotation throws and aerobic activity on a TM or elliptical.
--- NOTE | 2023-07-05 10:45 | PT.OTN ---
Current Diagnoses Dorsalgia, unspecified (07/05/23) Physical Therapy Treatment Note PT-OP-A Visit Information Start: 06/01/23 09:44 Freq: Status: Active Protocol: Document 07/05/23 10:43 ED (Rec: 07/05/23 10:45 ED [id number]) Out-Patient Physical Therapy Visit Information Visit Information Visit Type Treatment Note Visit Note 05/26 Visit Start Time 10:00 Visit Stop Time 10:40 Total Visit Minutes 40 Visit Number 8 PT-OP-B Current Condition Start: 06/01/23 09:44 Freq: Status: Active Protocol: Document 06/01/23 09:45 ED (Rec: 06/01/23 09:57 ED [id number]) Current Condition History of Current Condition Onset Date May Current Complaints LBP History of Current Condition Pt states that she fell out of a [employer] about 1 year ago and has had on and off back pain since then. Pt notes that she joined [employer] recently and hired a personal financial planner but that senior technical trainer wanted her to get her low back pain cleared up before they worked together. Pt notes that her pain is in her low back and the only things that she can think of that are painful for her are prolonged sitting and prolonged standing. Pt denies having any positional discomfort such as flexion or extension. Pt has no prior exercise history and states that she can get anxiety easily. PT-OP-C Subjective Start: 06/01/23 09:44 Freq: Status: Active Protocol: Document 07/05/23 10:43 ED (Rec: 07/05/23 10:45 ED [id number]) OP-PT Subjective Patient Comments Patient Comments Pt states that her back is not bothering her today. It is overall feeling better. PT-OP-K Range of Motion Start: 06/01/23 09:44 Freq: Status: Active Protocol: Document 06/01/23 09:45 ED (Rec: 06/01/23 09:57 ED [id number]) Lumbar Spine Range of Motion Lumbar Spine Percentage Testing Position Standing Flexion 75 Extension 50 ROM Limitations Pain PT-OP-L Special Tests Start: 06/01/23 09:44 Freq: Status: Active Protocol: Document 06/01/23 09:45 ED (Rec: 06/01/23 09:57 ED [id number]) Special Tests Lumbar Spine Special Tests Prone Press Up Test Results - Straight Leg Raise Test Results - PT-OP-Q Treatments Start: 06/01/23 09:44 Freq: Status: Active Protocol: Document 07/05/23 10:43 ED (Rec: 07/05/23 10:45 ED [id number]) Cardio Equipment Elliptical Duration (Minutes) 10 Resistance 4 Other goal to keep RPM >40 Treadmill Duration (Minutes) 10 Speed 2.0 Incline 4.0 Therapeutic Exercises Supine Exercises bridge Resistance 10# Reps/Minutes 3x10 Comments normal bridge, single leg bridge, weighted bridge Prone Exercises rashard pose Reps/Minutes x30 second hold press up Reps/Minutes x10 OR 30 second hold Therapeutic Activity Therapeutic Activity row Name cable row Reps/Minutes 3x15 Comments L3 squat Name STS Reps/Minutes 3x10 Comments 10# PT-OP-T Assessment and Plan Start: 06/01/23 09:44 Freq: Status: Active Protocol: Document 07/05/23 10:43 ED (Rec: 07/05/23 10:45 ED [id number]) Physical Therapy Assessment Goals Three Impairment pain Short Term Goal (STG) Pt will report 15% improvement in low back pain intensity/ frequency. STG Duration 3 weeks. Etl Informatica Architect Goal (LTG) Pt will report 50% improvement in low back pain intensity/ frequency. LTG Duration 6-8 weeks Two Impairment painful movements Short Term Goal (STG) pt will be able to perform 10 bridges c/o low back pain. STG Duration 3 weeks Snf Goal (LTG) Pt will be able to milk pickup truck driver 10# object from the ground c/o low back pain. One Impairment HEP Short Term Goal (STG) Pt will report performing HEP 3 days/week or more. STG Duration 3 weeks Snf Goal (LTG) Pt will report performing HEP 3 days/week or more. LTG Duration 6 weeks Assessment Summary Assessment Pt happy b/c she was able to crack her back when performing lumbar mobility drills today. PT asked patient how therapy has been going for her and she stated that she hasn't noticed any discomfort when performing the exercises nor has she been very sore after exercising. PT attempting to educated patient that low back pain is a normal experience and that she should be able to work with her personal financial planner at the gym. Physical Therapy Plan Frequency and Duration Frequency of Treatment 2x/Week Duration of treatment (weeks) 10 Plan of Care Start Date 06/01/23 Plan of Care End Date 08/30/23 Next Visit Focus/Plan Next Note Type Treatment Note Next Visit Plan hip bridges, rashard pose, prone press ups, sit<>stands, core rotation throws and aerobic activity on a TM or elliptical.
--- NOTE | 2023-07-08 12:01 | PT.OTN ---
Current Diagnoses Dorsalgia, unspecified (07/08/23) Physical Therapy Treatment Note PT-OP-A Visit Information Start: 06/01/23 09:44 Freq: Status: Active Protocol: Document 07/08/23 11:59 ED (Rec: 07/08/23 12:01 ED [id number]) Out-Patient Physical Therapy Visit Information Visit Information Visit Type Treatment Note Visit Note 06/26 Visit Start Time 11:15 Visit Stop Time 12:00 Total Visit Minutes 45 Visit Number 9 PT-OP-B Current Condition Start: 06/01/23 09:44 Freq: Status: Active Protocol: Document 06/01/23 09:45 ED (Rec: 06/01/23 09:57 ED [id number]) Current Condition History of Current Condition Onset Date May Current Complaints LBP History of Current Condition Pt states that she fell out of a [employer] about 1 year ago and has had on and off back pain since then. Pt notes that she joined [employer] recently and hired a personal lines advisor but that national sales trainer wanted her to get her low back pain cleared up before they worked together. Pt notes that her pain is in her low back and the only things that she can think of that are painful for her are prolonged sitting and prolonged standing. Pt denies having any positional discomfort such as flexion or extension. Pt has no prior exercise history and states that she can get anxiety easily. PT-OP-C Subjective Start: 06/01/23 09:44 Freq: Status: Active Protocol: Document 07/08/23 11:59 ED (Rec: 07/08/23 12:01 ED [id number]) OP-PT Subjective Patient Comments Patient Comments Pt states that her back is not bothering her today. It is overall feeling better. PT-OP-K Range of Motion Start: 06/01/23 09:44 Freq: Status: Active Protocol: Document 06/01/23 09:45 ED (Rec: 06/01/23 09:57 ED [id number]) Lumbar Spine Range of Motion Lumbar Spine Percentage Testing Position Standing Flexion 75 Extension 50 ROM Limitations Pain PT-OP-L Special Tests Start: 06/01/23 09:44 Freq: Status: Active Protocol: Document 06/01/23 09:45 ED (Rec: 06/01/23 09:57 ED [id number]) Special Tests Lumbar Spine Special Tests Prone Press Up Test Results - Straight Leg Raise Test Results - PT-OP-Q Treatments Start: 06/01/23 09:44 Freq: Status: Active Protocol: Document 07/08/23 11:59 ED (Rec: 07/08/23 12:01 ED [id number]) Therapeutic Exercises Supine Exercises bridge Resistance 10# Reps/Minutes 3x10 Comments normal bridge, single leg bridge, weighted bridge Prone Exercises rashard pose Reps/Minutes x30 second hold press up Reps/Minutes x10 OR 30 second hold Therapeutic Activity Therapeutic Activity row Name cable row Reps/Minutes 3x15 Comments L3 squat Name STS Reps/Minutes 3x10 Comments 10# PT-OP-T Assessment and Plan Start: 06/01/23 09:44 Freq: Status: Active Protocol: Document 07/08/23 11:59 ED (Rec: 07/08/23 12:01 ED [id number]) Physical Therapy Assessment Goals Three Impairment pain Short Term Goal (STG) Pt will report 15% improvement in low back pain intensity/ frequency. STG Duration 3 weeks. Graduate Student Goal (LTG) Pt will report 50% improvement in low back pain intensity/ frequency. LTG Duration 6-8 weeks Two Impairment painful movements Short Term Goal (STG) pt will be able to perform 10 bridges c/o low back pain. STG Duration 3 weeks Alf Goal (LTG) Pt will be able to diversified crops supervisor 10# object from the ground c/o low back pain. One Impairment HEP Short Term Goal (STG) Pt will report performing HEP 3 days/week or more. STG Duration 3 weeks Graduate Student Goal (LTG) Pt will report performing HEP 3 days/week or more. LTG Duration 6 weeks Assessment Summary Assessment Pt had slight increase in pain during rows but otherwise was able to perform movements without discomfort. PT asked patient how therapy has been going for her and she stated that she hasn't noticed any discomfort when performing the exercises nor has she been very sore after exercising. PT attempting to educated patient that low back pain is a normal experience and that she should be able to work with her personal lines advisor at the gym. Physical Therapy Plan Frequency and Duration Frequency of Treatment 2x/Week Duration of treatment (weeks) 10 Plan of Care Start Date 06/01/23 Plan of Care End Date 08/30/23 Next Visit Focus/Plan Next Note Type Treatment Note Next Visit Plan Oswestry, hip bridges, rashard pose, prone press ups, sit<> stands, core rotation throws and aerobic activity on a TM or elliptical.
--- NOTE | 2023-07-12 11:51 | PT.OPPN ---
Current Diagnoses Dorsalgia, unspecified (07/12/23) Physical Therapy Progress Note PT-OP-A Visit Information Start: 06/01/23 09:44 Freq: Status: Active Protocol: Document 07/12/23 11:48 ED (Rec: 07/12/23 11:51 ED [id number]) Out-Patient Physical Therapy Visit Information Visit Information Visit Type Progress Note Visit Note 07/26 Visit Start Time 11:10 Visit Stop Time 11:50 Total Visit Minutes 40 Visit Number 10 PT-OP-B Current Condition Start: 06/01/23 09:44 Freq: Status: Active Protocol: Document 06/01/23 09:45 ED (Rec: 06/01/23 09:57 ED [id number]) Current Condition History of Current Condition Onset Date May Current Complaints LBP History of Current Condition Pt states that she fell out of a [employer] about 1 year ago and has had on and off back pain since then. Pt notes that she joined [employer] recently and hired a personal injury specialist but that assistive technology trainer wanted her to get her low back pain cleared up before they worked together. Pt notes that her pain is in her low back and the only things that she can think of that are painful for her are prolonged sitting and prolonged standing. Pt denies having any positional discomfort such as flexion or extension. Pt has no prior exercise history and states that she can get anxiety easily. PT-OP-C Subjective Start: 06/01/23 09:44 Freq: Status: Active Protocol: Document 07/12/23 11:48 ED (Rec: 07/12/23 11:51 ED [id number]) OP-PT Subjective Patient Comments Patient Comments Pt notes that her back is feeling a lot better. She can basically do all her daily activities c/o pain. Patient Questionnaires Oswestry Low Back Index Oswestry Score 0 / 50 = 0.0 % Oswestry Impairment 0% Impaired (Score 0) PT-OP-K Range of Motion Start: 06/01/23 09:44 Freq: Status: Active Protocol: Document 06/01/23 09:45 ED (Rec: 06/01/23 09:57 ED [id number]) Lumbar Spine Range of Motion Lumbar Spine Percentage Testing Position Standing Flexion 75 Extension 50 ROM Limitations Pain PT-OP-L Special Tests Start: 06/01/23 09:44 Freq: Status: Active Protocol: Document 06/01/23 09:45 ED (Rec: 06/01/23 09:57 ED [id number]) Special Tests Lumbar Spine Special Tests Prone Press Up Test Results - Straight Leg Raise Test Results - PT-OP-T Assessment and Plan Start: 06/01/23 09:44 Freq: Status: Active Protocol: Document 07/12/23 11:48 ED (Rec: 07/12/23 11:51 ED [id number]) Physical Therapy Assessment Goals Three Impairment pain Short Term Goal (STG) Pt will report 15% improvement in low back pain intensity/ frequency. STG Duration 3 weeks. -MET Correction Goal (LTG) Pt will report 50% improvement in low back pain intensity/ frequency. LTG Duration 6-8 weeks -MET Two Impairment painful movements Short Term Goal (STG) pt will be able to perform 10 bridges c/o low back pain. STG Duration 3 weeks -MET Correction Goal (LTG) Pt will be able to pick out hand 10# object from the ground c/o low back pain. LTG Duration -MET One Impairment HEP Short Term Goal (STG) Pt will report performing HEP 3 days/week or more. STG Duration 3 weeks Research Environmental Scientist Goal (LTG) Pt will report performing HEP 3 days/week or more. LTG Duration 6 weeks Assessment Summary Assessment Pt completed Oswestry Low Back Pain Questionnaire and improved from a score of 24/ 50 (20-39% impaired) to a score of 0/50 (0% impaired). Pt has 1 more visit and will likely be discharged at that time. Physical Therapy Plan Next Visit Focus/Plan Next Note Type Discharge Summary
--- NOTE | 2023-07-19 07:45 | PT.OPDS ---
Current Diagnoses Dorsalgia, unspecified (07/12/23) Visit Care Team Role Provider Type Jeanna Bowens PA-C Attending Provider Advanced Turntable Worker Family Provider Primary Care Provider Referring Provider Specialty: Emergency Medicine Address: [address] [place] [address], [facility] Email: [email or web address] Visit Number Visit Number 10 Discharge Summary PT-OP-B Current Condition Start: 06/01/23 09:44 Freq: Status: Active Protocol: Document 06/01/23 09:45 ED (Rec: 06/01/23 09:57 ED [id number]) Current Condition History of Current Condition Onset Date May Current Complaints LBP History of Current Condition Pt states that she fell out of a [employer] about 1 year ago and has had on and off back pain since then. Pt notes that she joined [employer] recently and hired a racehorse trainer but that technology trainer wanted her to get her low back pain cleared up before they worked together. Pt notes that her pain is in her low back and the only things that she can think of that are painful for her are prolonged sitting and prolonged standing. Pt denies having any positional discomfort such as flexion or extension. Pt has no prior exercise history and states that she can get anxiety easily. PT-OP-C Subjective Start: 06/01/23 09:44 Freq: Status: Active Protocol: Document 07/12/23 11:48 ED (Rec: 07/12/23 11:51 ED [id number]) OP-PT Subjective Patient Comments Patient Comments Pt notes that her back is feeling a lot better. She can basically do all her daily activities c/o pain. Patient Questionnaires Oswestry Low Back Index Oswestry Score 0 / 50 = 0.0 % Oswestry Impairment 0% Impaired (Score 0) PT-OP-K Range of Motion Start: 06/01/23 09:44 Freq: Status: Active Protocol: Document 06/01/23 09:45 ED (Rec: 06/01/23 09:57 ED [id number]) Lumbar Spine Range of Motion Lumbar Spine Percentage Testing Position Standing Flexion 75 Extension 50 ROM Limitations Pain PT-OP-L Special Tests Start: 06/01/23 09:44 Freq: Status: Active Protocol: Document 06/01/23 09:45 ED (Rec: 06/01/23 09:57 ED [id number]) Special Tests Lumbar Spine Special Tests Prone Press Up Test Results - Straight Leg Raise Test Results - PT-OP-T Assessment and Plan Start: 06/01/23 09:44 Freq: Status: Active Protocol: Document 07/19/23 07:44 ED (Rec: 07/19/23 07:45 ED [id number]) Physical Therapy Assessment Goals Three Impairment pain Short Term Goal (STG) Pt will report 15% improvement in low back pain intensity/ frequency. STG Duration 3 weeks. -MET Orthotist Goal (LTG) Pt will report 50% improvement in low back pain intensity/ frequency. LTG Duration 6-8 weeks -MET Two Impairment painful movements Short Term Goal (STG) pt will be able to perform 10 bridges c/o low back pain. STG Duration 3 weeks -MET Mcfp Goal (LTG) Pt will be able to picker / packer 10# object from the ground c/o low back pain. LTG Duration -MET One Impairment HEP Short Term Goal (STG) Pt will report performing HEP 3 days/week or more. STG Duration 3 weeks Mcfp Goal (LTG) Pt will report performing HEP 3 days/week or more. LTG Duration 6 weeks Assessment Summary Assessment Pt completed Oswestry Low Back Pain Questionnaire and improved from a score of 24/ 50 (20-39% impaired) to a score of 0/50 (0% impaired). Pt made steady improvements in regards to pain and ability to perform functional physical activities c/o back pain. Pt will be discharged at this time d/t goals met. Physical Therapy Plan Discharge Physical Therapy Discharge Reasons Goals Met
== END 2023-07-20 16:51 | disposition home or self-care (01) ==
LOC: PHYS 11:30
PROVIDERS: Family Provider Physician Assistant; PCP Physician Assistant; Referring Provider Physician Assistant; Visit Provider Physician Assistant
DX: M54.9 Dorsalgia, unspecified (principal)
CPT/HCPCS: 97110; 97161; 97530

== ENCOUNTER → 2023-07-19 10:12 | Outpatient (CLI) | payer MEDICARE, MEDICAID, SELFPAY ==
[2023-07-19 10:46] LABS: Add Manual Diff / Slide Review NO; Basophils Absolute Auto 0 /uL (0-100); Basophils Percent Auto 0.4 % (0-2); Eosinophils Absolute Auto 0 /uL (0-450); Eosinophils Percent Auto 0.4 % (2-4); Hemoglobin 12.3 g/dL (12.0-16.0); Lymphocytes Absolute Auto 2200 /uL (1100-4500); Lymphocytes Percent Auto 26.9 % (25-40); Mean Corpuscular HGB Conc 33.3 % (30-36); Mean Corpuscular Hemoglobin 28.7 PG (26-34); Mean Corpuscular Volume 86.2 fL (80-100); Monocytes Absolute Auto 800 /uL (0-900); Monocytes Percent Auto 9.4 % (3-14); Neutrophils Absolute Auto 5100 /uL (1500-7000); Neutrophils Percent Auto 62.9 % (50-75); Platelet Count 243 X10^3/uL (150-400); Red Cell Distribution Width 15.2 % (11.6-14.8); White Blood Cell Count 8.1 X10^3/uL (4.5-11.0)
[2023-07-19 11:13] LABS: Alanine Aminotransferase 17 IU/L (<35); Albumin 4.2 g/dL (3.5-5.0); Albumin Globulin Ratio 1.2 (1.0-2.8); Alkaline Phosphatase 86 U/L (38-126); Aspartate Aminotransferase 20 IU/L (14-36); BUN Creatinine Ratio 26.2 (6-22); Bilirubin Total 0.3 mg/dL (0.2-1.3); Blood Urea Nitrogen 17 mg/dL (7-17); Calcium 9.6 mg/dL (8.4-10.2); Carbon Dioxide 28 mmol/L (22-32); Chloride 100 mmol/L (98-107); Estimated Glomerular Filt Rate > 60 mL/min (>60); Globulin 3.4 g/dL (1.7-4.1); Glucose 111 mg/dL (70-100); HEMOLYSIS < 15 (0-50); Potassium 4.1 mmol/L (3.4-5.1); Sodium 138 mmol/L (137-145); Total Protein 7.6 g/dL (6.3-8.2)
[2023-07-19 11:34] LABS: TSH w/ Reflex to FT4 4.13 uIU/mL (0.47-4.68)
[2023-07-19 12:20] LABS: Hemoglobin A1C% w Est Avg Glu 5.3 % (4.0-6.0)
== END ==
PROVIDERS: Family Provider Physician Assistant; PCP Family Medicine; Referring Provider Family Medicine; Visit Provider Family Medicine
DX: F32.A Depression, unspecified (principal); K42.9 Umbilical hernia without obstruction or gangrene; R73.9 Hyperglycemia, unspecified
CPT/HCPCS: 36415; 80053; 83036; 84443; 85025